=== PATIENT | female | born 1975 | race Caucasian/White ===

== ENCOUNTER 2019-06-20 14:44 | Emergency (ER) | payer OTHER, MEDICAID ==
[~2019-06-20] VITALS: Ht 175.3 cm; Wt 176.0 kg
[~2019-06-20 14:44] MED LIST: AMOXICILLIN 50500 MG; AZITHROMYCIN 2250 MG PO; BACTRIM DS TAB1 EACH PO; CENTANY30 GM TP; CEPHALEXIN 500500 M3 PO; CYMBALTA30 MG PO; CYMBALTA60 MG; HYDROCODON-ACE1 EAC7 PO; HYDROCODONE-AP1 EAC6 PO; IBUPROFEN 600600 M1 PO; IBUPROFEN 800800 M1 PO; KEFLEX500 MG PO; NAPROSYN500 MG PO; NOHOMEMEDICATIONS; NORCO 5-325 TA1 EACH PO; PHENERGAN 25 MG25 M1 PO; PROAIR HFA8.5 GM IH; TOPAMAX 100 MG100 MG; TOPAMAX 100 MG100 MG PO; TRINATE TABLET1 TAB PO; ZOLOFT PO
[2019-06-20 15:20] LABS: HEMATOCRIT 44.6 % (37.0-47.0); HEMOGLOBIN 15.2 gm/dL (12.0-15.0); MCH 33.5 pg (26.0-34.0); MCHC 34.1 g/dL (28.0-37.0); MCV 98.4 fL (80.0-100.0); MPV 8.4 fl. (7.2-11.1); NUCLEATED RBCS 0 /100WBC; PLATELET COUNT* 115 thou/uL (150-400); RBC 4.54 mil/uL (4.20-5.00); RDW-CV 15.2 % (10.5-14.5); WBC 10.7 thou/uL (4.0-11.0)
[2019-06-20 15:22] LABS: CREATININE 1.1 mg/dL (0.6-1.3); POTASSIUM 4.2 mmol/L (3.5-5.1)
[2019-06-20 15:26] LABS: ALBUMIN 3.5 g/dL (3.4-5.0); APTT 26.3 Seconds (25.0-31.3); PROTIME 9.9 Seconds (9.20-11.50); TOTAL BILIRUBIN 0.7 mg/dL (<0.1-1.0)
[2019-06-20 16:09] LABS: ABSOLUTE EOSINOPHILS 2.4 thou/uL (0.0-0.7); ABSOLUTE LYMPHOCYTES 2.2 thou/uL (0.8-5.3); ABSOLUTE MONOCYTES 0.1 thou/uL (0.0-1.2); PLATELET ESTIMATE ADEQUATE
[2019-06-20 18:24] VITALS: BP 107/62
== END 2019-06-20 18:25 | disposition home or self-care (01) ==
LOC: M.ERS 14:44
PROVIDERS: Personal Emergency Response Attendant
DX: R47.01 Aphasia (principal); Z91.040 Latex allergy status; G43.909 Migraine, unspecified, not intractable, without status migrainosus; Z98.890 Other specified postprocedural states